=== PATIENT | male | born 1930 | race Caucasian/White ===

== ENCOUNTER 2016-10-13 10:10 | Day surgery (SDC) | payer MEDICARE ==
[2016-10-13] MEDS ORDERED: RANEXA500 MG PO (12:19)
[2016-10-13] MEDS ORDERED: LEVOTHYROXINE50 MCG PO (12:19)
[2016-10-13] MEDS ORDERED: LUNESTA3 MG PO (12:19)
[2016-10-13] MEDS ORDERED: CRESTOR10 MG PO (12:19)
[2016-10-13] MEDS ORDERED: PEPCID AC20 MG PO (12:20)
[2016-10-13] MEDS ORDERED: PLAVIX75 MG PO (12:20)
[2016-10-13] MEDS ORDERED: ISOSORBIDE MONO60 M1 PO (12:20)
[2016-10-13] MEDS ORDERED: PROTONIX40 MG PO (12:21)
[2016-10-13 13:51] VITALS: BP 139/76
== END 2016-10-13 12:28 | disposition home or self-care (01) ==
LOC: D.OPS 10:10
DX: M53.3 Sacrococcygeal disorders, not elsewhere classified (principal)

== ENCOUNTER 2016-10-27 11:05 | Day surgery (SDC) | payer MEDICARE ==
[~2016-10-27 11:05] MED LIST: CRESTOR10 MG PO; ISOSORBIDE MONO60 M1 PO; LEVOTHYROXINE50 MCG PO; LUNESTA3 MG PO; PEPCID AC20 MG PO; PLAVIX75 MG PO; PROTONIX40 MG PO; RANEXA500 MG PO
[2016-10-27 14:12] VITALS: BP 126/78
--- NOTE | 2016-10-27 14:25 | NUR ---
1230-DISCHARGE INSTRUCTIONS REVIEWED. EMPHASIZED WHEN TO STOP PLAVIX PRIOR TO NEXT PROCEDURE. 1235-D/C HOME AMBULATORY.
== END 2016-10-27 12:35 | disposition home or self-care (01) ==
LOC: D.OPS 11:05
DX: M53.3 Sacrococcygeal disorders, not elsewhere classified (principal)

== ENCOUNTER → 2016-11-10 10:57 | Day surgery (SDC) | payer MEDICARE ==
--- NOTE | 2016-11-10 14:18 | NUR ---
1120-RECD TO ROOM. DR LEON PAGED 1215-DR LEON HERE. PATIENT STATES PAIN IS CONSISTENTLY 2 OR LESS. AFTER MUCH DISCUSSION, PATIENT ELECTS TO CANCEL PROCEDURE UNTIL PAIN WORSENS. CONTACT NUMBER FOR DR LEON AND SCHEDULING PROVIDED.
== END | disposition home or self-care (01) ==
LOC: D.OPS 10:57
DX: M53.3 Sacrococcygeal disorders, not elsewhere classified (principal); Z53.9 Procedure and treatment not carried out, unspecified reason

== ENCOUNTER → 2017-12-20 13:19 | Outpatient (CLI) | payer MEDICARE ==
[~2017-12-20] VITALS: Ht 167.6 cm; Wt 72.7 kg
[2017-12-20 14:12] VITALS: BP 124/61; Ht 167.6 cm; Wt 72.7 kg
== END | disposition home or self-care (01) ==
LOC: D.OPS 13:19
DX: M53.3 Sacrococcygeal disorders, not elsewhere classified (principal); Z01.812 Encounter for preprocedural laboratory examination

== ENCOUNTER 2018-01-04 12:12 | Day surgery (SDC) | payer MEDICARE ==
[~2018-01-04] VITALS: Ht 167.6 cm; Wt 73.2 kg
[2018-01-04 13:03] VITALS: Ht 167.6 cm; Wt 73.2 kg
== END 2018-01-04 14:05 | disposition home or self-care (01) ==
LOC: D.OPS 12:12
DX: M53.3 Sacrococcygeal disorders, not elsewhere classified (principal)